=== PATIENT | female | born 1945 | race Caucasian/White ===

== ENCOUNTER 2017-11-25 10:06 | Outpatient (CLI) | payer MEDICARE, OTHER | END 2017-11-25 10:08 | LOC: POD 10:06 | PROVIDERS: ATTEND Podiatrist Public Medicine | DX: E11.610 Type 2 diabetes mellitus with diabetic neuropathic arthropathy (principal); M14.672 Charcot's joint, left ankle and foot; M25.572 Pain in left ankle and joints of left foot; R26.2 Difficulty in walking, not elsewhere classified; R26.81 Unsteadiness on feet; R26.89 Other abnormalities of gait and mobility; B35.1 Tinea unguium; L60.0 Ingrowing nail; M79.672 Pain in left foot | CPT/HCPCS: 11721; G0463 ==

== ENCOUNTER 2018-03-10 11:34 | Outpatient (CLI) | payer MEDICARE, OTHER | END 2018-03-10 11:36 | LOC: POD 11:34 | PROVIDERS: ATTEND Podiatrist Public Medicine | DX: E11.610 Type 2 diabetes mellitus with diabetic neuropathic arthropathy (principal); M14.672 Charcot's joint, left ankle and foot; M25.572 Pain in left ankle and joints of left foot; R26.2 Difficulty in walking, not elsewhere classified; R26.81 Unsteadiness on feet; R26.89 Other abnormalities of gait and mobility; B35.1 Tinea unguium; L60.0 Ingrowing nail; M79.672 Pain in left foot | CPT/HCPCS: 11721; G0463 ==